=== PATIENT | female | born 1995 | race Caucasian/White ===

== ENCOUNTER → 2021-07-23 | Outpatient (CLI) | payer OTHER ==
--- NOTE | 2021-07-23 13:30 | XR ---
2 view abdomen HISTORY: Abdominal pain, cramping 2 views the abdomen on 3 images, no comparisons Lung bases are clear. There is no evident pneumoperitoneum or bowel obstruction. There is a slight sp inal curvature. Suspect sacralization of L5, spina bifida occulta present at this level. No pathologi c calcification. IMPRESSION: No acute abnormality.
== END | disposition home or self-care (01) ==
LOC: RADXRYALE 10:04
PROVIDERS: ATTEND Physician Assistant
DX: R10.9 Unspecified abdominal pain (principal)
CPT/HCPCS: 74019